=== PATIENT | female | born 1985 | race Caucasian/White ===

== ENCOUNTER 2018-11-13 13:35 | Emergency (ER) | payer MEDICAID ==
[2018-11-13] MEDS ORDERED: predniSONE 20 MG TABLET PO STA (14:52)
[2018-11-13] MEDS ORDERED: HYDROcod/ACETAM 5/325 MG TABLET PO STA (14:52)
[2018-11-13] MEDS ORDERED: CYCLOBENZAPRINE 10 MG TABLET PO STA (14:52)
--- NOTE | 2018-11-13 14:55 | ED Physician Documentation ---
PD HPI BACK INJURY - Stated complaint Stated Complaint: BACK PX - History obtained from History obtained from: Patient - History of Present Illness Location: Lower (She has had ongoing low back pain since the age of 20 but had severe back pain after lifting her child this morning, its in the low back and radiating down the left leg without weakness, numbness, tingling, saddle anesthesia or fever.) Review of Systems Constitutional: denies: Fever, Chills Throat: reports: Reviewed and negative Cardiac: reports: Reviewed and negative Respiratory: reports: Reviewed and negative PD PAST MEDICAL HISTORY - Present Medications Home Medications: Ambulatory Orders Medication Instructions Recorded Confirmed Cyclobenzaprine [Flexeril] 10 mg PO TID PRN #20 tablet 11/13/18 Hydrocodone/Acetaminophen 1 - 2 each PO Q6H PRN #14 tablet 11/13/18 [Hydrocodon-Acetaminophen 5-325] predniSONE [Deltasone] 60 mg PO DAILY 5 Days tablet 11/13/18 - Allergies Allergies/Adverse Reactions: Allergies Allergy/AdvReac Type Severity Reaction Status Date / Time No Known Drug Allergies Allergy Verified 11/13/18 14:01 PD ED PE NORMAL - Vitals Vital signs reviewed: Yes - General General: Alert and oriented X 3, Other (Winces with motion) - Abdomen Abdomen: Soft, Non tender - Back Back: No spinal TTP, Other (The patient has equal and normal Achilles and patellar reflexes bilaterally. Normal sensation in all areas of the legs. Patient denies saddle anesthesia. Normal strength in flexion-extension at the ankles, knees, and flexion of the hips.) - Neuro Neuro: Alert and oriented X 3, Normal speech Results - Vitals Vitals: Vital Signs - 24 hr 11/13/18 13:59 Temperature 36.4 C L Heart Rate 82 Respiratory 14 Rate Blood Pressure 126/70 O2 Saturation 99 Oxygen O2 Source Room air PD MEDICAL DECISION MAKING - ED course ED course: This patient has seemingly uncomplicated musculoskeletal back pain. The patient has no "red flags." Specifically denies IV drug use, fevers, incontinence, saddle anesthesia. Spinal epidural abscess was considered, given that the patient has no fever, is not diabetic, has no spinal tenderness, does not use IV drugs, and has no bilateral neurologic symptoms, the diagnosis of spinal epidural abscess is considered exceedingly unlikely. The [facility] prescription monitoring program was queried with regard to this patient. No concerning findings were found. Departure - Departure Disposition: 01 Home, Self Care Clinical Impression: Back pain Qualifiers: Back pain location: low back pain Chronicity: acute Back pain laterality: midline Sciatica presence: without sciatica Qualified Code(s): M54.5 - Low back pain Condition: Good Record reviewed to determine appropriate education?: Yes Instructions: ED Low Back Pain Injury Prescriptions: Cyclobenzaprine [Flexeril] 10 mg PO TID PRN #20 tablet PRN Reason: Spasms Hydrocodone/Acetaminophen [Hydrocodon-Acetaminophen 5-325] 1 - 2 each PO Q6H PRN #14 tablet PRN Reason: pain predniSONE [Deltasone] 60 mg PO DAILY 5 Days tablet Comments: Call your doctor to arrange a follow-up appointment, make the next available appointment. In the interim, return anytime if worse or if new symptoms develop.
[2018-11-13] MEDS ORDERED: predniSONE 20 MG TABLET ONE (15:25)
[2018-11-13 15:32] VITALS: BP 118/84
== END 2018-11-13 15:32 | disposition home or self-care (01) ==
LOC: ED 13:35
DX: M54.5 Low back pain (principal)
CPT/HCPCS: 99282; 99283; A9270; J7512

== ENCOUNTER 2021-05-07 16:27 | Emergency (ER) | payer OTHER ==
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
[2021-05-07] MEDS ORDERED: methocarbamoL 500 MG TABLET PO STA (18:04)
[2021-05-07] MEDS ORDERED: IBUPROFEN 600 MG TABLET PO STA (18:04)
[2021-05-07] MEDS ORDERED: ACETAMINOPHEN 325 MG TABLET PO STA (18:04)
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
[2021-05-07 20:48] VITALS: BP 124/76
== END 2021-05-07 20:46 | disposition home or self-care (01) ==
LOC: ED 16:27
DX: S16.1XXA Strain of muscle, fascia and tendon at neck level, initial encounter (principal); S39.012A Strain of muscle, fascia and tendon of lower back, initial encounter; V89.2XXA Person injured in unspecified motor-vehicle accident, traffic, initial encounter; Y93.89 Activity, other specified; Y92.410 Unspecified street and highway as the place of occurrence of the external cause
CPT/HCPCS: 72040; 72100; 99283; A9270